=== PATIENT | female | born 1990 | race Caucasian/White ===

== ENCOUNTER 2016-06-29 21:00 | Emergency (ER) | payer OTHER ==
[~2016-06-29] VITALS: Ht 154.9 cm; Wt 86.2 kg
[~2016-06-29 21:00] MED LIST: CIPRO250 M2 PO; MOTRIN600 MG PO; NORCO 10/325 MG1 TAB PO; [UNRECOGNIZED DRUG - REMARK]
[2016-06-29 21:20] VITALS: BP 152/100
--- NOTE | 2016-06-29 22:30 | NUR ---
Pt ambulated to bed 6 at this time.
--- NOTE | 2016-06-29 22:38 | NUR ---
PATIENT PRESENTS TO ED WITH RUQ ABD PAIN . PT STATES PAIN RADIATES TO LOWER BACK FOR THE PAST 3 DAYS . DENIES N/V/D; SKIN IS PINK/WARM/DRY; AAOX4 WITH EVEN AND STEADY GAIT; LUNGS CLEAR BL; HR EVEN AND REGULAR; PT DENIES ANY FEVER, CP, SOB, OR COUGH AT THIS TIME; PATIENT STATES PAIN OF 8/10 AT THIS TIME; VSS; PATIENT POSITIONED FOR COMFORT; HOB ELEVATED; BEDRAILS UP X2; BED DOWN. ER MD MADE AWARE OF PT STATUS.
[2016-06-29] MEDS ORDERED: NACL 0.9% 1,000 ML IV SCH (22:51)
[2016-06-29] MEDS ORDERED: FAMOTIDINE 20 MG/2 ML VIAL IVP ONE (22:55)
[2016-06-29] MEDS ORDERED: ONDANSETRON 4 MG/2 ML VIAL IVP ONE (22:55)
[2016-06-29] MEDS ORDERED: KETOROLAC 30 MG/ML VIAL IVP ONE (23:00)
--- NOTE | 2016-06-30 00:14 | NUR ---
Note maged in EDM - 06/30/16 at 0153 by HUDSON Patient discharged with v/s stable. Written and verbal after care instructions given and explained. Patient alert, oriented and verbalized understanding of instructions. Ambulatory with steady gait. All questions addressed prior to discharge. ID band removed. Patient advised to follow up with PMD. Rx of TRAMADOL HYDROCHLORIDE given. Patient educated on indication of medication including possible reaction and side effects. Opportunity to ask questions provided and answered.
[2016-06-30 01:50] VITALS: BP 125/70
--- NOTE | 2016-06-30 01:53 | NUR ---
Patient discharged with v/s stable. Written and verbal after care instructions given and explained. Patient alert, oriented and verbalized understanding of instructions. Ambulatory with steady gait. All questions addressed prior to discharge. ID band removed. Patient advised to follow up with PMD. Rx of NORCO AND ZOFRAN given. Patient educated on indication of medication including possible reaction and side effects. Opportunity to ask questions provided and answered.
== END 2016-06-30 01:53 | disposition home or self-care (01) ==
LOC: MED 21:00
DX: N20.0 Calculus of kidney (principal); F17.210 Nicotine dependence, cigarettes, uncomplicated
CPT/HCPCS: 36415; 74176; 80053; 81001; 82150; 83690; 84702; 85025; 96361; 96374; 96375; 99285; J1885; J2405; J3490; J7030

== ENCOUNTER 2018-01-02 09:55 | Emergency (ER) | payer OTHER ==
[~2018-01-02] VITALS: Ht 157.5 cm; Wt 78.0 kg
[~2018-01-02 09:55] MED LIST changes: +ACET-787 PO; +CIPR250T3 PO; -CIPRO250 M2 PO; +IBUP-2213 PO; -MOTRIN600 MG PO; -NORCO 10/325 MG1 TAB PO; -[UNRECOGNIZED DRUG - REMARK]
[2018-01-02 10:00] VITALS: BP 146/111
[2018-01-02] MEDS ORDERED: traMADol 50 MG TAB PO ONE (10:40)
[2018-01-02] MEDS ORDERED: KETOROLAC 60 MG/2 ML VIAL IM ONE (10:40)
[2018-01-02 12:01] VITALS: BP 146/111
[2018-01-02 12:03] LABS: BARBITURATE, URINE NEG. ng/ml (NEG <=200); BENZODIAZEPINE, URINE NEG. ng/mL (NEG <=200); CANNABINOID, URINE NEG. ng/mL (NEG <=50); COCAINE, URINE NEG. ng/mL (NEG <=300); OPIATE, URINE NEG. ng/mL (NEG <=2000); PHENCYCLIDINE SCREEN,URINE NEG. ng/mL (NEG <=25)
== END 2018-01-02 11:55 | disposition home or self-care (01) ==
LOC: MED 09:55
DX: R51 Headache (principal); R11.0 Nausea; Z79.2 Long term (current) use of antibiotics
CPT/HCPCS: 70450; 80305; 81025; 96372; 99285; J1885